=== PATIENT | male | born 1990 | race Caucasian/White ===

== ENCOUNTER 2020-04-22 11:19 | Emergency (ER) | payer OTHER ==
[~2020-04-22] VITALS: Ht 176 cm; Wt 85.0 kg
--- NOTE | 2020-04-22 11:35 | NUR ---
THE PT'S GLOVE WAS INTACT ON ARRIVAL BUT WE CUT IT OPEN TO GET OUT THE PIECE OF THE FINGER.
--- NOTE | 2020-04-22 11:36 | ED Upper Extremity ---
General Chief Complaint: Laceration Stated Complaint: FINGER LACERATION Nursing Triage Note: PT STATES HE WAS AT WORK AND GOT HIS 5TH DIGIT CRUSHED/LACERATED WHILE MOVING A [employer] THAT SLID ON SOME OIL. A SMALL PIECE OF THE TIP OF THE FINGER WAS IN HIS GLOVE ON ARRIVAL. Nursing Sepsis Screen: No Definite Risk Source: patient Exam Limitations: no limitations History of Present Illness Date Seen by Provider: Apr 22, 2020 Time Seen by Provider: 11:21 Initial Comments Patient resents ER by private conveyance with chief complaint that just prior to arrival she was lifting some heavy equipment and it slid down and crushed the tip of his left fifth finger distal phalanx of the fingertip in his glove. He says he is up-to-date on tetanus vaccination. No significant medical history. Un able to flex the finger. Allergies and Home Medications Allergies Coded Allergies: No Known Drug Allergies (Unverified , 04/22/20) Patient Home Medication List Home Medication List Reviewed: Yes Review of Systems Constitutional: No chills, No diaphoresis EENTM: No ear discharge, No hearing loss, No ear pain Respiratory: No cough, No short of breath Cardiovascular: No chest pain, No palpitations All Other Systems Reviewed Negative Unless Noted: Yes Past Tgmfmdz-Fqdsfs-Rzrxui Hx Patient Social History Alcohol Use: Occasionally Uses Alcohol Beverage of Choice: Beer Recreational Drug Use: No Smoking Status: Never a Smoker Type Used: Smokeless Tobacco Recent Foreign Travel: No Contact w/Someone Who Travel: No Recent Infectious Disease Expo: No Recent Hopitalizations: No Physical Abuse: No Sexual Abuse: No Mistreated: No Fear: No Seasonal Allergies Seasonal Allergies: No Past Medical History Surgeries: No Respiratory: No Cardiac: No Neurological: No Genitourinary: No Gastrointestinal: No Musculoskeletal: No HEENT: No Cancer: No Psychosocial: No Integumentary: No Physical Exam Vital Signs Vital Signs - First Documented 04/22/20 11:22 Temp 36.3 Pulse 88 Resp 20 B/P (MAP) 133/98 (110) Pulse Ox 99 O2 Delivery Room Air Capillary Refill : Less Than 3 Seconds Height, Weight, BMI Height: '" Weight: lbs. oz. kg; 27.00 BMI Method: General Appearance: WD/WN, mild distress HEENT: PERRL/EOMI, pharynx normal Neck: full range of motion, normal inspection Cardiovascular: normal peripheral pulses, regular rate, rhythm Respiratory: no respiratory distress, no accessory muscle use Wrist: Yes normal inspection, Yes non-tender, Yes no evidence of injury, Yes normal ROM Hand: normal ROM, soft tissue tenderness (soft tissue avulsion distal fifth finger left hand with exposed tuft of the distal phalanx.) Neurologic/Psychiatric: alert, normal mood/affect, oriented x 3 Procedures/Interventions Wound Location: Upper Extremities Other Wound Location left distal 5th finger avulsion Wound Length (cm): 1 Wound's Depth, Shape: contused tissue, bone (exposed distal tuft of distal phalanx of 5th digit left hand), sub Q Wound Explored: no foreign body removed Irrigated w/ Saline (ccs): 150 Betadine Prep?: Yes (Chlorhexidine) Anesthesia: 1% Lidocaine Volume Anesthetic (ccs): 5 Wound Debrided: minimal Suture: Prolene Suture Size: 4-0 Number of Sutures: 6 Layer Closure?: 1 Sterile Dressing Applied?: Yes Progress/Results/Core Measures Results/Orders My Orders Orders - PERFECTO RUSSO Finger(S) (04/22/20 11:32) Lidocaine 1% Inj 20 Ml (Xylocaine 1% Inj (04/22/20 12:15) Medications Given in ED Current Medications Medications Dose Ordered Sig/Cleo Route Start Time Stop Time Status Last Admin Dose Admin Lidocaine HCl 20 ml ONCE ONCE INJ 04/22/20 12:15 04/22/20 12:16 DC 04/22/20 12:13 20 ML Vital Signs/I&O 04/22/20 11:22 Temp 36.3 Pulse 88 Resp 20 B/P (MAP) 133/98 (110) Pulse Ox 99 O2 Delivery Room Air Blood Pressure Mean: 110 Diagnostic Imaging Diagonstic Imaging: Xray Plain Films/CT/US/NM/MRI: hand (fingers) Comments NAME: I[facility]AS [facility] REC#: [id number] PT STATUS: REG ER : 1990 PHYSICIAN: PERFECTO RUSSO MD ADMIT DATE: 04/22/20/ER Draft Date of Exam:04/22/20 FINGER(S) INDICATION: Injury to the left fifth finger. TIME OF EXAM: 12:13 p.m. EXAMINATION: Multiple views of left fifth finger were obtained. FINDINGS: There appears to be a soft tissue injury and amputation of the tip of the fifth finger. Bony structures appear to be intact. No fracture is seen. No radiopaque foreign body is seen. IMPRESSION: Soft tissue amputation of the tip of the fifth finger. No acute bony abnormality is detected. Dictated on workstation # [id number] Dict: 04/22/20 1215 Trans: 04/22/20 1219 [facility] [id number] Interpreted by: HEIDE LOPEZ MD Electronically signed by: Reviewed: Reviewed by Me Departure Impression Primary Impression: Fingertip avulsion Qualified Codes: S61.209A - Unspecified open wound of unspecified finger without damage to nail, initial encounter Additional Impression: Fingertip contusion Qualified Codes: S60.00XA - Contusion of unspecified finger without damage to nail, initial encounter Disposition: HOME, SELF-CARE Condition: Stable Departure-Patient Inst. Decision time for Depature: 12:30 Referrals: AUBREY MENJIVAR FLOYD R MD (PCP/Family) Primary Care Physician Patient Instructions: Laceration Repair With Stitches (DC), Amputation of the Finger or Fingertip Add. Discharge Instructions: Keep the wound clean with regular soap and water. If it's bleeding you may apply direct pressure and elevated above the level of your heart. Change the dressing as often as it becomes soiled or at least daily. You may put a dollop of Vaseline or triple antibiotic ointment on the end of the wound twice a day as necessary. Take the Keflex one capsule 3 times a day for the next week to prevent infection. Plan to follow up with Dr. Menjivar next Monday at 0930. You may call and change the appointment if necessary. Return to the ER to have redness going up your hand and arm, fever, vomiting etc. Tylenol 1000 mg every 8 hours as necessary for pain. Ibuprofen 800 mg every 8 hours as necessary for pain. Hydrocodone one tablet every 6 hours as necessary for breakthrough pain. All discharge instructions reviewed with patient and/or family. Voiced understanding. Scripts Cephalexin (Cephalexin) 500 Mg Tablet 500 MG PO TID for 7 Days, #21 TAB 0 Refills Prov: RAFAELAPERFECTO Ochoa 04/22/20 Work/School Note: Work Release Form Date Seen in the Emergency Department: Apr 22, 2020 Return to Work: Apr 23, 2020 Restrictions: Need Release from Doctor Other Restrictions Listed Below: Minimize work with the left hand until helton tures removed or released by Copy Copies To 1: AUBREY MENJIVAR TITUS J Apr 22, 2020 11:36
[2020-04-22] MEDS ORDERED: LIDOCAINE 1% INJ 20 ML 20 ML VIAL INJ ONE (12:15)
--- NOTE | 2020-04-22 12:19 | Diagnostic Imaging Report ---
INDICATION: Injury to the left fifth finger. TIME OF EXAM: 12:13 p.m. EXAMINATION: Multiple views of left fifth finger were obtained. FINDINGS: There appears to be a soft tissue injury and amputation of the tip of the fifth finger. Bony structures appear to be intact. No fracture is seen. No radiopaque foreign body is seen. IMPRESSION: Soft tissue amputation of the tip of the fifth finger. No acute bony abnormality is detected. Dictated by: Dictated on workstation # [id number]
--- NOTE | 2020-04-22 12:24 | NUR ---
[address] Dozier.
[2020-04-22] MEDS ORDERED: ACHD5005 PO (12:39)
[2020-04-22] MEDS ORDERED: CEPH500T PO (12:39)
[2020-04-22] MEDS ORDERED: IBUPROFEN 800 MG (MOTRIN) TAB PO STA (12:47)
[2020-04-22 12:50] VITALS: BP 133/98
== END 2020-04-22 12:50 | disposition home or self-care (01) ==
LOC: EDUNIT# 11:19 → ER 11:20
DX: S60.052A Contusion of left little finger without damage to nail, initial encounter (principal); S61.307A Unspecified open wound of left little finger with damage to nail, initial encounter; W23.0XXA Caught, crushed, jammed, or pinched between moving objects, initial encounter
CPT/HCPCS: 12041; 64450; 73140